=== PATIENT | male | born 1970 | race Caucasian/White ===

== ENCOUNTER 2016-08-01 08:00 | Outpatient (RCR) | payer BC | END 2016-08-18 10:48 | disposition home or self-care (01) | LOC: MKS.ESL.PT 08:00 | DX: M54.5 Low back pain (principal) | CPT/HCPCS: G0283-GP ==

== ENCOUNTER 2017-06-19 14:34 | Emergency (ER) | payer BC ==
[~2017-06-19] VITALS: Ht 177.8 cm; Wt 95.5 kg
[2017-06-19 14:36] VITALS: BP 140/76; TEMP 98.8
[2017-06-19] MEDS ORDERED: PRINIVIL20 MG PO (14:39)
[2017-06-19 16:06] VITALS: PULSE 74
== END 2017-06-19 16:07 | disposition home or self-care (01) ==
LOC: COL.ER 14:34
DX: S61.210A Laceration without foreign body of right index finger without damage to nail, initial encounter (principal); I10 Essential (primary) hypertension; Z23 Encounter for immunization; W26.8XXA Contact with other sharp object(s), not elsewhere classified, initial encounter

== ENCOUNTER 2017-06-29 08:56 | Emergency (ER) | payer OTHER ==
[~2017-06-29 08:56] MED LIST: PRINIVIL20 MG PO
[2017-06-29 09:00] VITALS: BP 122/87; PULSE 74; TEMP 97.8
== END 2017-06-29 09:03 | disposition other institution (70) ==
LOC: COL.ER 08:56
DX: S61.411D Laceration without foreign body of right hand, subsequent encounter (principal); X58.XXXD Exposure to other specified factors, subsequent encounter

== ENCOUNTER → 2019-07-17 | Outpatient (CLI) | payer BC | LOC: ZCOL.LAB 16:24 | DX: L72.3 Sebaceous cyst (principal) ==

== ENCOUNTER → 2020-12-18 | Emergency (ER) | payer BC ==
[~2020-12-18] VITALS: Ht 177.8 cm; Wt 95.5 kg
[~2020-12-18] MED LIST changes: +CEPHALEXIN500 M1 PO
[2020-12-18 15:15] VITALS: BP 175/83; PULSE 85; TEMP 98.7
== END ==
LOC: COL.ER 14:47
DX: S61.214A Laceration without foreign body of right ring finger without damage to nail, initial encounter (principal); W23.1XXA Caught, crushed, jammed, or pinched between stationary objects, initial encounter

== ENCOUNTER → 2020-12-27 | Outpatient (CLI) | payer BC ==
[2020-12-27 11:45] VITALS: BP 113/80; PULSE 57
== END ==
LOC: COL.ER 11:20
DX: Z48.02 Encounter for removal of sutures (principal)

== ENCOUNTER 2021-09-15 12:52 | Outpatient (RCR) | payer OTHER | END 2021-09-29 | disposition still patient (30) | LOC: WSOH | DX: S66.011A Strain of long flexor muscle, fascia and tendon of right thumb at wrist and hand level, initial encounter (principal); I10 Essential (primary) hypertension; Z98.890 Other specified postprocedural states; Y99.0 Civilian activity done for income or pay ==

== ENCOUNTER 2021-09-26 10:43 | Outpatient (RCR) | payer BC | END 2021-09-29 | disposition home or self-care (01) | LOC: WSOT | DX: S66.011D Strain of long flexor muscle, fascia and tendon of right thumb at wrist and hand level, subsequent encounter (principal); X58.XXXD Exposure to other specified factors, subsequent encounter ==

== ENCOUNTER 2021-10-10 11:51 | Outpatient (RCR) | payer OTHER | END 2021-10-29 | disposition home or self-care (01) | LOC: WSOH | DX: S66.011D Strain of long flexor muscle, fascia and tendon of right thumb at wrist and hand level, subsequent encounter (principal); Y99.0 Civilian activity done for income or pay; I10 Essential (primary) hypertension; Z98.890 Other specified postprocedural states; Z79.899 Other long term (current) drug therapy | CPT/HCPCS: J3301 ==

== ENCOUNTER 2021-10-27 11:15 | Outpatient (RCR) | payer BC | END 2021-10-29 | disposition home or self-care (01) | LOC: WSOT | DX: S66.011A Strain of long flexor muscle, fascia and tendon of right thumb at wrist and hand level, initial encounter (principal) ==

== ENCOUNTER 2021-11-18 10:00 | Outpatient (RCR) | payer OTHER, BC | END 2021-11-18 16:40 | disposition home or self-care (01) | LOC: WSOT 10:00 | DX: S66.011D Strain of long flexor muscle, fascia and tendon of right thumb at wrist and hand level, subsequent encounter (principal); X58.XXXD Exposure to other specified factors, subsequent encounter ==

== ENCOUNTER 2021-11-18 10:35 | Outpatient (RCR) | payer OTHER | END 2021-11-29 | LOC: WSOH | DX: S66.011D Strain of long flexor muscle, fascia and tendon of right thumb at wrist and hand level, subsequent encounter (principal); I10 Essential (primary) hypertension; Z98.890 Other specified postprocedural states; Y99.0 Civilian activity done for income or pay ==